=== PATIENT | female | born 1965 ===

== ENCOUNTER 2017-03-24 12:24 | Emergency (ER) | payer OTHER ==
[2017-03-24 12:34] VITALS: BP 112/71
--- NOTE | 2017-03-24 13:24 | UC ---
Shoulder Pain HPI - HPI Summary HPI Summary: fell off the 1/2 flight of stairs x 2 days ago landed on her right side, injury to her right shoulder, right hip and right lower ext increase pain with any movement better with rest, - History of Current Complaint Chief Complaint: UCBackPain Stated Complaint: NECK,BACK PAIN Time Seen by Provider: 03/24/17 12:54 Hx Obtained From: Patient Hx Last Menstrual Period: 03/03/17 ?: No Onset/Duration: Sudden Onset, Lasting Days - 2, Still Present Timing: Constant Severity Initially: Severe Severity Currently: Severe Location Of Pain: Is Discrete @ - right shoulder, right hip , right lower ext. Character: Aching Aggravating Factor(s): Movement Alleviating Factor(s): Rest Associated Signs And Symptoms: Positive: Weakness - right shoulder , right hip - Allergies/Home Medications Allergies/Adverse Reactions: Allergies Allergy/AdvReac Type Severity Reaction Status Date / Time Amoxicillin [From Trimox] Allergy Anaphylatic Verified 03/24/17 12:34 Shock Latex Allergy Hives Verified 03/24/17 12:34 Home Medications: Home Medications FLUoxetine CAP* [PROzac CAP*] 60 mg PO BEDTIME 03/24/17 [History Confirmed 03/24] Gabapentin CAP(*) [Neurontin 300 CAP(*)] 1 tab PO TID 03/24/17 [History Confirmed 03/24/17] Losartan TAB* [Cozaar TAB*] 50 mg PO DAILY 03/24/17 [History Confirmed 03/24/17] Naproxen TAB* [Naprosyn 250 mg TAB*] 500 mg PO Q8H PRN 03/24/17 [History Confirmed 03/24/17] amLODIPine TAB* [Norvasc 5 mg TAB*] 1 tab PO DAILY 03/24/17 [History Confirmed 03/24/17] cloNIDine TAB* [Catapres 0.1 MG TAB*] 0.2 mg PO DAILY 03/24/17 [History Confirmed 03/24/17] metFORMIN* [Glucophage 500 MG TAB *] 1 tab PO DAILY 03/24/17 [History Confirmed 03/24/17] PMH/Surg Hx/FS Hx/Imm Hx Endocrine History Of: Reports: Diabetes - Type 2 Cardiovascular History Of: Reports: Cardiac Disorders - heart murmur, Hypertension Respiratory History Of: Reports: Asthma - Surgical History Surgical History: Yes Surgery Procedure, Year, and Place: theeth extraction 2017 - Family History Known Family History: Positive: Hypertension - Social History Alcohol Use: None Substance Use Type: None Smoking Status (MU): Never Smoked Tobacco Review of Systems Constitutional: Negative Skin: Negative Eyes: Negative ENT: Negative Respiratory: Negative Cardiovascular: Negative Gastrointestinal: Negative Musculoskeletal: Other: - right hip / right soulder and right lower ext pain All Other Systems Reviewed And Are Negative: Yes Physical Exam Triage Information Reviewed: Yes Appearance: Well-Nourished, Pain Distress Vital Signs: Initial Vital Signs Temp 97.4 F 03/24/17 12:26 Pulse 66 03/24/17 12:26 Resp 16 03/24/17 12:26 BP 112/71 03/24/17 12:26 Pulse Ox 100 03/24/17 12:26 Vital Signs Reviewed: Yes Eyes: Positive: Conjunctiva Clear ENT: Positive: Normal ENT inspection, Hearing grossly normal, Pharynx normal Neck exam: Normal Neck: Positive: Supple, Nontender, No Lymphadenopathy Respiratory: Positive: Chest non-tender, Lungs clear, Normal breath sounds, No respiratory distress Cardiovascular: Positive: RRR, No Murmur, Pulses Normal Abdomen Description: Positive: Nontender, Soft Bowel Sounds: Positive: Present Musculoskeletal: Positive: Other: - right shoulder : no swellin, no ecchymosis , diffuse tenderness, limited ROM , limited strength right hip : no swelling, no ecchymosis, . diffuse tenderness, limited ROM and limither power Diagnostics - Laboratory Diagnostic Studies Completed/Ordered: right shoulder: no fracture or dyslocation seen. right hip : no fracture Shoulder Course/Dx - Differential Dx/Diagnosis Provider Diagnoses: right shoulder pain. right hip pain Discharge - Discharge Plan Condition: Stable Disposition: HOME Patient Education Materials: Shoulder Sprain (ED), Hip Pain (ED), Hip Contusion (ED) Referrals: No Primary Care Phys,NOPCP [Primary Care Provider] - Bro Corado MD [Medical Doctor] - As Soon As Possible
--- NOTE | 2017-03-24 13:35 | RAD ---
INDICATION: Right shoulder injury. TECHNIQUE: 4 views of the right shoulder were obtained. FINDINGS: The bones are in normal alignment. No fracture is seen. Joint spaces appear maintained. IMPRESSION: NO EVIDENCE OF FRACTURE.
--- NOTE | 2017-03-24 13:37 | RAD ---
INDICATION: Right hip injury. COMPARISON: There are no prior studies available for comparison. TECHNIQUE: An AP view of the pelvis and frontal and lateral views of the right hip were obtained. FINDINGS: The bones are in normal alignment. No fracture is seen. 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 IMPRESSION: NO EVIDENCE FOR FRACTURE, IF THE PATIENT'S SYMPTOMS PERSIST RECOMMEND FOLLOW-UP IMAGING.
== END 2017-03-24 13:44 | disposition home or self-care (01) ==
LOC: UCCORT 12:24
DX: M25.511 Pain in right shoulder (principal); M25.551 Pain in right hip; Z88.1 Allergy status to other antibiotic agents; Z91.040 Latex allergy status; E11.8 Type 2 diabetes mellitus with unspecified complications; Z79.84 Long term (current) use of oral hypoglycemic drugs; I10 Essential (primary) hypertension; J45.909 Unspecified asthma, uncomplicated
CPT/HCPCS: 99211; G0463